=== PATIENT | male | born 1955 | race Caucasian/White ===

== ENCOUNTER 2018-09-20 07:32 | Outpatient (CLI) | payer MEDICARE ==
--- NOTE | 2018-09-20 08:43 | MRI ---
MRI Upper Ext Jt Lt WO Con History: [M 75.102 nontraumatic tear of left rotator cuff] Comparison: None. Findings: Biceps tendon: There is high-grade tearing of the extra-articular biceps tendon with interstitial spl it. Interstitial tearing does extend into the intra-articular tendon. Small bodies within the biceps tendon sheath. There is subluxation upon the lesser tuberosity with subcortical cyst formation of the lesser tuberosity. Approximately 50% undersurface tearing and loss of volume of the biceps tendon at the proximal intertubercular groove with tear of the superior glenohumeral ligament portion of the biceps sylvain. Labrum: Degenerative tearing of the superior labrum. Rotator cuff: Moderate tendinosis of the supraspinatus and infraspinatus tendons. No full-thickness p erforation. Undersurface partial tearing of the anterior 1 cm fiber supraspinatus tendon near the footprint, approximately 20-30% partial tearing. This does extend into the proximal footprint with vaughan bcortical cyst formation. Bones: There is lateral downsloping of the acromion is type I. There is narrowing of subacromial spac e to 4-5 mm. Moderate degenerative disease acromioclavicular joint. No glenoid dysplasia. Mild narrowing and subcoracoid space. Muscles: Muscle bulk is normal. Soft tissues: There is edema along the superficial fat adjacent to the origin of the deltoid muscle w hich may reflect a contusion. Impression: 1. High-grade undersurface and interstitial tearing of the biceps tendon at the proximal intertubercu lar groove with subluxation upon the lesser tuberosity with subcortical cyst formation indicating chronic biceps sylvain insufficiency and tear of the superior glenohumeral ligament portion of the bic eps sylvain. 2. Degenerative type tearing of the superior labrum. 3. Lateral downsloping of the acromion narrowing the subacromial space with subsequent bursal surface fraying and tendinosis of the supraspinatus tendon. 4. 20-30% undersurface partial tearing anterior 1 cm fibers of the supraspinatus tendon extending to the proximal footprint with subcortical cyst formation. 5. Small bodies within the extra articular biceps tendon sheath with tenosynovitis. 6. Mild cutaneous fat edema adjacent to the middle head of the deltoid may reflect a contusion.
== END 2018-09-20 07:33 | disposition home or self-care (01) ==
LOC: BICMRI 07:32
PROVIDERS: ATTEND Orthopaedic Surgery
DX: M75.102 Unspecified rotator cuff tear or rupture of left shoulder, not specified as traumatic (principal); S46.212A Strain of muscle, fascia and tendon of other parts of biceps, left arm, initial encounter; S43.002A Unspecified subluxation of left shoulder joint, initial encounter; M24.812 Other specific joint derangements of left shoulder, not elsewhere classified; M25.812 Other specified joint disorders, left shoulder; M65.812 Other synovitis and tenosynovitis, left shoulder; R60.0 Localized edema; M75.92 Shoulder lesion, unspecified, left shoulder

== ENCOUNTER 2022-08-03 11:46 | Outpatient (CLI) | payer MEDICARE ==
[2022-08-03 13:13] LABS: #Basophils 0.1 10x3/uL (0.0-0.2); #Eosinphils 0.3 10x3/uL (0.0-0.5); #Monocytes 0.7 10x3/uL (0.0-1.1); #Neutrophils 5.5 10x3/uL (1.5-8.4); %Eosinophils 2.6 % (0.0-6.0); %Neutrophils 56.9 % (40.0-75.0); Hemoglobin 16.5 g/dL (13.5-17.5); Mean Corpuscular HGB CONC 33.7 g/dL (32.0-36.0); Mean Corpuscular Hemoglobin 29.8 pg (27.0-33.0); Mean Corpuscular Volume 88.4 fl (81.2-95.1); Mean Platelet Volume 9.7 fl (7.4-10.4); Platelet Count 210 10x3/uL (150-450); RBC Distribution Width 13.8 % (11.5-14.5); Red Blood Cell (RBC) Count 5.54 10x6/uL (4.32-5.72); White Blood Cell (WBC) Count 9.7 10x3/uL (3.5-10.5)
[2022-08-03 13:25] LABS: Anion Gap 14 mmol/L (10-20); BUN (Urea Nitrogen) 15 mg/dL (8.4-25.7); Calc. Creatinine Clearance 0 mL/min (70-130); Calcium 9.2 mg/dL (7.8-10.44); Carbon Dioxide 23 mmol/L (23-31); Chloride 108 mmol/L (98-107); Estimated GFR 76; Glucose 98 mg/dL (80-115); Potassium 4.4 mmol/L (3.5-5.1); Sodium 141 mmol/L (136-145)
== END 2022-08-03 11:47 | disposition home or self-care (01) ==
LOC: LABBT 11:46
PROVIDERS: ATTEND Surgery
DX: Z01.812 Encounter for preprocedural laboratory examination (principal); K42.9 Umbilical hernia without obstruction or gangrene
CPT/HCPCS: 80048; 85025

== ENCOUNTER 2022-08-05 11:11 | Day surgery (SDC) | payer MEDICARE ==
[2022-08-05] MEDS ORDERED: Bupivacaine/Epinephrine 0.25% 30 ML VIAL ONE ×2 (13:11→13:59)
[2022-08-05] MEDS ORDERED: fentaNYL 50 mcg/mL 1 mL Vial ONE (14:01)
[2022-08-05] MEDS ORDERED: Famotidine/PF 20 mg/2ml Vial ONE (14:06)
[2022-08-05] MEDS ORDERED: PROPOFOL 20 ML ONE (14:06)
[2022-08-05] MEDS ORDERED: CEFAZOLIN 2 GM VIAL ONE (14:09)
[2022-08-05] MEDS ORDERED: Sodium Chloride 0.9% 100 ML ONE (14:09)
[2022-08-05] MEDS ORDERED: Lidocaine 1% PF 5 ML VIAL ONE (14:14)
[2022-08-05] MEDS ORDERED: Ondansetron PF 4 MG/2 ML Vial ONE (14:14)
[2022-08-05] MEDS ORDERED: Dexamethasone 20 MG/5 ML VIAL ONE (14:14)
[2022-08-05] MEDS ORDERED: PROPOFOL 200 MG/20 ML VIAL ONE (14:14)
== END 2022-08-05 16:42 | disposition home or self-care (01) ==
LOC: SDC 11:11
PROVIDERS: ATTEND Surgery
PROC: 0WUF0JZ Supplement Abdominal Wall with Synthetic Substitute, Open Approach (ICD-10-PCS; principal; 2022-08-05)
DX: K42.9 Umbilical hernia without obstruction or gangrene (principal); F17.210 Nicotine dependence, cigarettes, uncomplicated
CPT/HCPCS: 49591; C1889; J3010; J1100; J2405; J2704; J3490; S0028

== ENCOUNTER 2023-04-29 06:10 | Day surgery (SDC) | payer MEDICARE, OTHER ==
[2023-04-23 11:09] VITALS: BMI 25.1
[2023-04-29] MEDS ORDERED: EPINEPHrine 1 MG/ML VIAL ONE (06:53)
[2023-04-29] MEDS ORDERED: Bupivacaine 0.25% HCL 30 ML VIAL ONE (06:53)
[2023-04-29] MEDS ORDERED: Lidocaine 2% PF 5 ML VIAL ONE (06:54)
[2023-04-29] MEDS ORDERED: fentaNYL PF 100 MCG/2 ML SYRINGE ONE (07:04)
[2023-04-29] MEDS ORDERED: PROPOFOL 40 ML ONE (07:05)
[2023-04-29] MEDS ORDERED: Famotidine/PF 20 mg/2ml Vial ONE (07:31)
[2023-04-29] MEDS ORDERED: Sodium Chloride 0.9% 100 ML ONE (07:32)
[2023-04-29] MEDS ORDERED: CEFAZOLIN 2 GM VIAL ONE (07:32)
[2023-04-29] MEDS ORDERED: Dexamethasone 4 mg/ml Vial ONE (07:56)
[2023-04-29] MEDS ORDERED: Lidocaine 1% PF 5 ML VIAL ONE (07:56)
[2023-04-29] MEDS ORDERED: Ondansetron PF 4 MG/2 ML Vial ONE (07:56)
[2023-04-29] MEDS ORDERED: ePHEDrine Sulfate 50 MG/10 ML VIAL ONE (08:00)
== END 2023-04-29 10:50 | disposition home or self-care (01) ==
LOC: SDC 06:10
PROVIDERS: ATTEND Surgery
PROC: 0HB5XZZ Excision of Chest Skin, External Approach (ICD-10-PCS; principal; 2023-04-29)
PROC: 0HB5XZZ Excision of Chest Skin, External Approach (ICD-10-PCS; 2023-04-29)
DX: C44.519 Basal cell carcinoma of skin of other part of trunk (principal); L82.1 Other seborrheic keratosis; F17.210 Nicotine dependence, cigarettes, uncomplicated; Z79.899 Other long term (current) drug therapy; Z98.890 Other specified postprocedural states
CPT/HCPCS: 11401; 11603; 12034; J0171; 88305; 88331; 88332; J1100; J2001; J2405; J2704; J3490; S0020; S0028